=== PATIENT | female | born 1990 | race Caucasian/White ===

== ENCOUNTER 2017-06-07 21:32 | Emergency (ER) | payer BC, OTHER ==
[2017-06-07 21:54] VITALS: BP 149/101
--- NOTE | 2017-06-07 22:51 | UC ---
Upper Extremity HPI - HPI Summary HPI Summary: HAD BLOOD DRAWN RIGHT AC TODAY 11:30AM. 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 NO REDNESS, SWELLING, DRAINAGE OR INDURATION. NO FEVER. - History of Current Complaint Chief Complaint: UCUpperExtremity Stated Complaint: ARM NUMB,TINGLING, PAIN Time Seen by Provider: 06/07/17 22:07 Hx Obtained From: Patient Hx Last Menstrual Period: 05/24/17 Onset/Duration: Gradual Onset, Lasting Hours, Still Present Severity Initially: Moderate Severity Currently: Moderate Pain Intensity: 7 Pain Scale Used: 0-10 Numeric Location Of Pain: Is Discrete @ - RIGHT ARM Aggravating Factor(s): Nothing Alleviating Factor(s): Nothing Associated Signs And Symptoms: Positive: Numbness/Tingling. Negative: Swelling , Redness, Bruising, Fever, Weakness Related History: Dominant Hand Right - Allergies/Home Medications Allergies/Adverse Reactions: Allergies Allergy/AdvReac Type Severity Reaction Status Date / Time Armodafinil [From Nuvigil] Allergy Hives Verified 06/07/17 21:42 Fluoxetine [From Prozac] Allergy Rash Verified 08/09/14 11:01 Penicillins Allergy Rash Verified 08/09/14 11:01 Shrimp Flavor Allergy See Comment Verified 06/07/17 21:42 Tree Nuts Allergy Airway Verified 06/07/17 21:42 Obstruction Home Medications: Home Medications Amphetamine-Dextroamphetamine [Adderall 10 mg-] 1 tab PO DAILY 06/07/17 [ History Confirmed 06/07/17] Desvenlafaxine(NF) [Pristiq(NF)] 100 mg PO DAILY 06/07/17 [History Confirmed 06/15] Lansoprazole [Prevacid] 30 mg PO 06/07/17 [History] Norelgestromin-Ethinyl Estradi [Xulane 150-35 Mcg/24Hr] 1 dis TD 06/07/17 [ History] PMH/Surg Hx/FS Hx/Imm Hx - Additional Past Medical History Additional PMH: hiatal hernia, IBS, ADD Respiratory History: Asthma GI/ History: Gastroesophageal Reflux Psychological History: Anxiety, Depression - Surgical History Surgical History: Yes Surgery Procedure, Year, and Place: craniectomy, hemangioma removed - Family History Known Family History: Positive: Diabetes Negative: Blood Disorder - Social History Alcohol Use: Occasionally Substance Use Type: None Smoking Status (MU): Never Smoked Tobacco Review of Systems Constitutional: Negative Skin: Negative Respiratory: Negative Cardiovascular: Negative Gastrointestinal: Negative Neurological: Paresthesia All Other Systems Reviewed And Are Negative: Yes Physical Exam Triage Information Reviewed: Yes Appearance: Well-Appearing, No Pain Distress, Well-Nourished Vital Signs: Initial Vital Signs Temp 99.6 F 06/07/17 21:33 Pulse 80 06/07/17 21:33 Resp 18 06/07/17 21:33 BP 149/101 06/07/17 21:33 Pulse Ox 100 06/07/17 21:33 Vital Signs Reviewed: Yes Eyes: Positive: Conjunctiva Clear ENT: Positive: Hearing grossly normal Neck: Positive: Supple Respiratory: Positive: No respiratory distress, No accessory muscle use Cardiovascular: Positive: Pulses Normal Abdomen Description: Positive: Soft Musculoskeletal: Positive: Strength Intact, ROM Intact, No Edema, Other: - TTP AROUND PUNCTURE SITE RIGHT AC. NO SWELLING OR CORDS Neurological: Positive: Alert Psychological: Positive: Age Appropriate Behavior Skin: Positive: Other - PUNCTURE SITE RIGHT AC FOSSA. NO SURROUNDING ERYTHEMA OR BRUISING. Negative: rashes Upper Extremity Course/Dx - Differential Dx/Diagnosis Provider Diagnoses: SUPERFICIAL PHLEBITIS/PARESTHESIAS RIGHT UPPER EXTREMITY Discharge - Discharge Plan Condition: Stable Disposition: HOME Patient Education Materials: Paresthesia (ED) Referrals: Raquel Carter MD [Primary Care Provider] - If Needed Additional Instructions: YOUR SYMPTOMS SHOULD IMPROVE OVER THE NEXT FEW DAYS. YOU MAY HAVE A SUPERFICIAL PHLEBITIS (INFLAMMATION OF THE VESSEL) FROM WHERE YOU HAD YOUR BLOOD DRAWN. APPLY A HOT COMPRESS AND TAKE IBUPROFEN. DO NOT OVERLY EXERT THE ARM UNTIL SYMPTOMS ARE IMPROVED. FOLLOW-UP WITH YOUR PCP IF YOU ARE NOT IMPROVING EXPECTED OVER THE NEXT SEVERAL DAYS. GO TO THE ER WITHOUT FAIL IF YOU DEVELOP SPREADING REDNESS OF THE SKIN, PURULENT DRAINAGE, FEVER, INCREASED PAIN/SWELLING OR ANY OTHER CONCERNING SYMPTOMS.
== END 2017-06-07 23:02 | disposition home or self-care (01) ==
LOC: UCEAST 21:32
DX: I82.811 Embolism and thrombosis of superficial veins of right lower extremity (principal); R20.2 Paresthesia of skin; J45.909 Unspecified asthma, uncomplicated; K21.9 Gastro-esophageal reflux disease without esophagitis; F41.9 Anxiety disorder, unspecified; F32.9 Major depressive disorder, single episode, unspecified; F98.8 Other specified behavioral and emotional disorders with onset usually occurring in childhood and adolescence; K58.9 Irritable bowel syndrome, unspecified; K44.9 Diaphragmatic hernia without obstruction or gangrene; Z88.8 Allergy status to other drugs, medicaments and biological substances; Z88.0 Allergy status to penicillin
CPT/HCPCS: 99211; G0463

== ENCOUNTER 2017-06-22 18:11 | Emergency (ER) | payer OTHER ==
[2017-06-22 18:42] VITALS: BP 120/83
--- NOTE | 2017-06-22 19:42 | UC ---
Abdominal Pain Female HPI - HPI Summary HPI Summary: has external tissue from rectum concerned about what it is---reports ibs with constipation and occasional she has spots of blood on the toilet paper---not other morejon ill - History of Current Complaint Hx Obtained From: Patient Hx Last Menstrual Period: 06/17/17 ?: No Onset/Duration: Lasting Days - 1 Timing: Constant Severity Initially: Mild Severity Currently: Mild Pain Intensity: 0 Location: Other - rectal Radiates: No Aggravating Factor(s): Nothing Alleviating Factor(s): Nothing Associated Signs and Symptoms: Positive: Negative <Margarette Weeks - Last Filed: 06/22/17 20:05> <Faina Hayden - Last Filed: 06/22/17 20:30> - History of Current Complaint Chief Complaint: UCGI Stated Complaint: PERSONAL Time Seen by Provider: 06/22/17 19:14 Allergies/Adverse Reactions: Allergies Allergy/AdvReac Type Severity Reaction Status Date / Time Armodafinil [From Nuvigil] Allergy Hives Verified 06/22/17 18:43 Fluoxetine [From Prozac] Allergy Rash Verified 06/22/17 18:43 Penicillins Allergy Rash Verified 06/22/17 18:43 Shrimp Flavor Allergy See Comment Verified 06/22/17 18:43 Tree Nuts Allergy Airway Verified 06/22/17 18:43 Obstruction PMH/Surg Hx/FS Hx/Imm Hx Previously Healthy: No GI/ History: Gastroesophageal Reflux, Other Other GI/ History: IBS Psychological History: Other Other Psychological History: ADD - Surgical History Surgical History: Yes Surgery Procedure, Year, and Place: craniectomy, hemangiectomy - Family History Known Family History: Positive: Diabetes Negative: Blood Disorder - Social History Occupation: Employed Full-time Lives: Alone Alcohol Use: Weekly Substance Use Type: None Smoking Status (MU): Never Smoked Tobacco <Margarette Weeks - Last Filed: 06/22/17 20:05> Review of Systems Constitutional: Negative Skin: Negative Eyes: Negative ENT: Negative Respiratory: Negative Cardiovascular: Negative Gastrointestinal: Negative, Other - hemorroids? Genitourinary: Negative Motor: Negative Neurovascular: Negative Musculoskeletal: Negative Neurological: Negative Psychological: Negative Is Patient Immunocompromised?: No All Other Systems Reviewed And Are Negative: Yes <Margarette Weeks - Last Filed: 06/22/17 20:05> Physical Exam Triage Information Reviewed: Yes Appearance: Well-Appearing, No Pain Distress, Well-Nourished Vital Signs: Initial Vital Signs Temp 99.0 F 06/22/17 18:38 Pulse 97 06/22/17 18:38 Resp 18 06/22/17 18:38 BP 120/83 06/22/17 18:38 Pulse Ox 100 06/22/17 18:38 Vital Signs Reviewed: Yes Eye Exam: Normal Eyes: Positive: Conjunctiva Clear ENT Exam: Normal ENT: Positive: Normal ENT inspection, Hearing grossly normal. Negative: Nasal congestion, Nasal drainage, Trismus, Muffled/hoarse voice Dental Exam: Normal Neck exam: Normal Neck: Positive: Supple, Nontender Respiratory Exam: Normal Respiratory: Positive: Chest non-tender, No respiratory distress, No accessory muscle use Cardiovascular Exam: Normal Cardiovascular: Positive: RRR, Pulses Normal, Brisk Capillary Refill Abdominal Exam: Normal Abdomen Description: Positive: Nontender, No Organomegaly, Soft, Other: - external hemmoroid noted no bleeding Bowel Sounds: Positive: Present Musculoskeletal Exam: Normal Musculoskeletal: Positive: Strength Intact, ROM Intact, No Edema Neurological Exam: Normal Neurological: Positive: Alert, Muscle Tone Normal Psychological Exam: Normal Psychological: Positive: Normal Response To Family Skin Exam: Normal <Margarette Weeks - Last Filed: 06/22/17 20:05> Vital Signs: Initial Vital Signs Temp 99.0 F 06/22/17 18:38 Pulse 97 06/22/17 18:38 Resp 18 06/22/17 18:38 BP 120/83 06/22/17 18:38 Pulse Ox 100 06/22/17 18:38 <Faina Hayden - Last Filed: 06/22/17 20:30> Abd Pain Female Course/Dx - Course Course Of Treatment: prep H, stool softners, increase water in diet, follow with surgery if needed - Differential Dx/Diagnosis Differential Diagnosis: Constipation, Diverticulitis, Irritable Bowel Syndrome Provider Diagnoses: External Hemmoroid <Margarette Weeks - Last Filed: 06/22/17 20:05> Discharge <Margarette Weeks - Last Filed: 06/22/17 20:05> <Faina Hayden - Last Filed: 06/22/17 20:30> - Discharge Plan Condition: Stable Disposition: HOME Prescriptions: Docusate CAP* [Colace Cap*] 100 mg PO DAILY #30 cap Hemorrhoidal OINT* [Preparation H*] 1 applic MI TID PRN #1 tube PRN Reason: pain-hemorrhoids Hemorrhoidal SUPP* [Preparation H Supp*] 1 supp MI Q12H PRN #1 box PRN Reason: pain/swelling hemorrhoids Psyllium JENNIFER* [Metamucil JENNIFER*] 1 pkt PO DAILY #30 packet Patient Education Materials: Hydrocortisone (Into the rectum), Hemorrhoids (ED) Referrals: [facility] [Provider Group] - 2 Weeks Attestation Statement User Type: Provider - I was available for consult. This patient was seen by the [facility]. The patient was not presented to, seen by, or examined by me. -[place] <Faina Hayden - Last Filed: 06/22/17 20:30>
== END 2017-06-22 20:03 | disposition home or self-care (01) ==
LOC: UCEAST 18:11
DX: K64.4 Residual hemorrhoidal skin tags (principal); Z91.018 Allergy to other foods; Z88.0 Allergy status to penicillin; Z91.013 Allergy to seafood; K21.9 Gastro-esophageal reflux disease without esophagitis; K58.9 Irritable bowel syndrome, unspecified; F98.8 Other specified behavioral and emotional disorders with onset usually occurring in childhood and adolescence
CPT/HCPCS: 99211; G0463

== ENCOUNTER 2017-08-29 17:31 | Emergency (ER) | payer OTHER ==
[2017-08-29 17:39] VITALS: BP 108/68
--- NOTE | 2017-08-29 17:56 | UC ---
Respiratory Complaint HPI - HPI Summary HPI Summary: Cough sx for 1 week pink tinged sputum last nigh small amount of blood speckles this morning no fevers chills weight loss - History of Current Complaint Chief Complaint: UCGeneralIllness Stated Complaint: COUGHING BLOOD,ST Time Seen by Provider: 08/29/17 17:53 Hx Obtained From: Patient Hx Last Menstrual Period: 06/17/17 ?: No Onset/Duration: Gradual Onset, Lasting Days Timing: Constant Severity Initially: Mild Severity Currently: Mild Character: Cough: Productive Aggravating Factors: Nothing Alleviating Factors: Nothing Associated Signs And Symptoms: Positive: Hemoptysis - 'some pink speckles", URI - Allergies/Home Medications Allergies/Adverse Reactions: Allergies Allergy/AdvReac Type Severity Reaction Status Date / Time Armodafinil [From Nuvigil] Allergy Hives Verified 08/29/17 17:39 Fluoxetine [From Prozac] Allergy Rash Verified 08/29/17 17:39 Penicillins Allergy Rash Verified 08/29/17 17:39 Shrimp Flavor Allergy See Comment Verified 08/29/17 17:39 Tree Nuts Allergy Airway Verified 08/29/17 17:39 Obstruction Home Medications: Home Medications Ranitidine TAB (NF) [Zantac TAB (NF)] 150 mg PO BID 08/29/17 [History Confirmed 08/29/17] PMH/Surg Hx/FS Hx/Imm Hx Previously Healthy: No GI/ History: Gastroesophageal Reflux - Surgical History Surgical History: Yes Surgery Procedure, Year, and Place: craniectomy, hemangiectomy - Family History Known Family History: Positive: Diabetes Negative: Blood Disorder - Social History Occupation: Employed Full-time Lives: With Family Alcohol Use: Weekly Substance Use Type: None Smoking Status (MU): Never Smoked Tobacco Review of Systems Constitutional: Negative Skin: Negative Eyes: Negative ENT: Negative Respiratory: Cough Cardiovascular: Negative Gastrointestinal: Negative Genitourinary: Negative Motor: Negative Neurovascular: Negative Musculoskeletal: Negative Neurological: Negative Psychological: Negative Is Patient Immunocompromised?: No All Other Systems Reviewed And Are Negative: Yes Physical Exam Triage Information Reviewed: Yes Appearance: Well-Appearing, No Pain Distress, Well-Nourished Vital Signs: Initial Vital Signs Temp 97.2 F 08/29/17 17:35 Pulse 77 08/29/17 17:35 Resp 16 08/29/17 17:35 BP 108/68 08/29/17 17:35 Pulse Ox 100 08/29/17 17:35 Vital Signs Reviewed: Yes Eye Exam: Normal Eyes: Positive: Conjunctiva Clear ENT Exam: Normal ENT: Positive: Normal ENT inspection, Hearing grossly normal, Pharynx normal, TMs normal. Negative: Nasal congestion, Nasal drainage, Tonsillar swelling, Tonsillar exudate, Trismus, Muffled voice, Hoarse voice, Sinus tenderness Dental Exam: Normal Neck exam: Normal Neck: Positive: Supple, Nontender, No Lymphadenopathy Respiratory Exam: Normal Respiratory: Positive: Chest non-tender, Lungs clear, Normal breath sounds, No respiratory distress, No accessory muscle use Cardiovascular Exam: Normal Cardiovascular: Positive: RRR, No Murmur, Pulses Normal, Brisk Capillary Refill Musculoskeletal Exam: Normal Musculoskeletal: Positive: Strength Intact, ROM Intact, No Edema Neurological Exam: Normal Neurological: Positive: Alert, Muscle Tone Normal Psychological Exam: Normal Skin Exam: Normal UC Diagnostic Evaluation - Laboratory O2 Sat by Pulse Oximetry: 100 Respiratory Course/Dx - Course Course Of Treatment: cool mist humidifications, mucolytic, antibiodic increase fluids follow with pcp - Differential Dx/Diagnosis Provider Diagnoses: Acute Bronchitis Discharge - Discharge Plan Condition: Stable Disposition: HOME Prescriptions: Albuterol HFA INHALER* [Ventolin HFA Inhaler*] 2 puff INH Q4H PRN #1 mdi PRN Reason: cough/chest tightness Azithromycin TAB* [Zithromax TAB (Z-JENNIFER) 250 mg #6 tabs] 2 tab PO .TODAY, THEN 1 DAILY #1 jennifer predniSONE TAB* [Deltasone TAB*] 50 mg PO DAILY #4 tab Patient Education Materials: Antitussives (By mouth), Acute Bronchitis (ED), Cold Symptoms (ED) Referrals: Raquel Carter MD [Primary Care Provider] - If Needed Additional Instructions: A cool mist humidifier is very helpful in keeping airways moist-making it easier to cough up secretions
== END 2017-08-29 18:34 | disposition home or self-care (01) ==
LOC: UCEAST 17:31
DX: J20.9 Acute bronchitis, unspecified (principal); R04.2 Hemoptysis; K21.9 Gastro-esophageal reflux disease without esophagitis; Z88.0 Allergy status to penicillin; Z88.8 Allergy status to other drugs, medicaments and biological substances; Z98.890 Other specified postprocedural states
CPT/HCPCS: 87651; 99212; G0463

== ENCOUNTER 2018-10-09 20:52 | Emergency (ER) | payer OTHER ==
--- NOTE | 2018-10-09 20:59 | UC ---
Complaint Female HPI - HPI Summary HPI Summary: 28 yo female presents with concerns about possible infection. She is very anxious and has an extensive mental health history - tells me that she saw her psychiatrist about 2-3 days ago and was advised by him to get an EKG due to increased HR that he and pt have been attributing to her medications. She was seen by her PCP today and an EKG was done and revealed slightly elevated HR - per pt. She finished Bactrim yesterday for a UTI, but does not feel her urine color or smell is changed and the urine culture was negative - per pt. She is b/ l low back pain and thinks she has a fever. She is concerned about a "spreading infection" She tells me that she has had low back pain for lower abdominal pain around the time of her period for the last 3-4 months. She has been changing control methods trying to improve this discomfort. Recently she was started on the nuva- ring. Currently has mild menstrual bleeding. She has been checking her temperature multiple times today and at one point had a reading of 99.8 and 100.2F - prompting her visit to because she is concerned about a fever. She has had abdominal pain and nausea for the past few months as well and that has remained unchanged. She denies chills, sinus symptoms, sore throat, cough, SOB, chest pain, dysuria, or hematuria. Denies SI/HI. - History Of Current Complaint Stated Complaint: FEVER, AND BACK PAIN Hx Obtained From: Patient Hx Last Menstrual Period: 10/09/18 Onset/Duration: Gradual Onset Timing: Constant Severity Initially: Moderate Severity Currently: Moderate Pain Intensity: 6 Pain Scale Used: 0-10 Numeric - Allergies/Home Medications Allergies/Adverse Reactions: Allergies Allergy/AdvReac Type Severity Reaction Status Date / Time armodafinil [From Nuvigil] Allergy Intermediate Rash Verified 10/09/18 21:16 Penicillins Allergy Intermediate Rash Verified 10/09/18 21:16 fluoxetine [From Prozac] Allergy Rash Verified 10/09/18 21:16 shrimp Allergy by skin Verified 10/09/18 21:16 testing Tree Nuts Allergy Airway Verified 10/09/18 21:16 Obstruction Home Medications: Home Medications Methylphenidate HCl [Concerta] 36 mg PO DAILY 10/09/18 [History Confirmed ] PMH/Surg Hx/FS Hx/Imm Hx - Additional Past Medical History Additional PMH: ADHD GI/ History: Gastroesophageal Reflux Psychological History: Anxiety, Depression - Surgical History Surgical History: Yes Surgery Procedure, Year, and Place: craniectomy, hemangiectomy - Family History Known Family History: Positive: Diabetes Negative: Blood Disorder - Social History Occupation: Employed Full-time Lives: With Family Alcohol Use: Weekly Substance Use Type: None Smoking Status (MU): Never Smoked Tobacco Review of Systems All Other Systems Reviewed And Are Negative: Yes Constitutional: Positive: Fever Skin: Positive: Negative Eyes: Positive: Negative ENT: Positive: Negative Respiratory: Positive: Negative Cardiovascular: Positive: Negative Gastrointestinal: Positive: Negative Genitourinary: Positive: Dysuria Neurovascular: Positive: Negative Neurological: Positive: Negative Psychological: Positive: Negative Physical Exam - Summary Physical Exam Summary: GENERAL: NAD. WDWN. No pain distress. SKIN: No rashes, sores, lesions, or open wounds. NECK: Supple. Nontender. No lymphadenopathy. CHEST: CTAB. No r/r/w. No accessory muscle use. Breathing comfortably and in no distress. CV: Tachycardia. Without m/r/g. Pulses intact. Cap refill <2seconds ABDOMEN: TTP about entire abdomen - worse in lower abdomen. No distention or guarding. Mild b/l CVA tenderness. Bowel sounds present MSK: TTP about lumbar paraspinal muscles. Pain worse with bending and stretching. Negative SLR. FROM b/l LEs. NEURO: AAOx3. Sensations intact L3-S1. PSYCH: Age appropriate behavior. Triage Information Reviewed: Yes Vital Signs: Vital Signs: Temp Pulse Resp BP Pulse Ox 98 F 103 17 144/94 98 10/09/18 20:58 10/09/18 20:58 10/09/18 20:58 10/09/18 20:58 10/09/18 20:58 Laboratory Tests 10/09/18 21:20 POC Urine Color Yessenia POC Urine Clarity Clear POC Urine pH 7.0 POC Ur Specif [place] 1.025 POC Urine Protein Trace A POC Ur Glucose (UA) Negative POC Urine Ketones 3+ A POC Urine Blood Negative POC Urine Nitrite Negative POC Urine Bilirubin 1+ A POC Urine Urobilinogen 1.0 POC U Leukocyte Esteras Negative Vital Signs Reviewed: Yes Complaint Female Dx - Course Course Of Treatment: I had a long discussion with the pt that her vitals are WNL , her urine does not show any infection, and her exam shows no evidence of infection. She does have some TTP in her back and lower abdomen - but this has been ongoing for months. I reassured her that I do not see any signs of an acute disease process today, but will draw for CBC, CMP, and TSH to further evaluate a potential underlying process. I suspect most of her symptoms are related to her menstrual cycle and/or anxiety. She has a f/u with her psychiatrist scheduled and an appt to f/u with her PCP in about 1 month - will forward results to her PCP from labwork today. Pt voiced understanding and is agreeable to the plan. - Differential Dx/Diagnosis Provider Diagnosis: Lower abdominal pain, Low back pain, Anxiety Discharge - Sign-Out/Discharge Documenting (check all that apply): Patient Departure All imaging exams completed and their final reports reviewed: No Studies - Discharge Plan Condition: Stable Disposition: HOME Referrals: Anna Jaffe MD [Primary Care Provider] - Additional Instructions: If you develop a fever, shortness of breath, chest pain, new or worsening symptoms - please call your PCP or go to the ED. I believe the cause of your pain is related to your menstrual cycle. You had no sign of infection on your exam today. We have drawn for labwork and will call you with results. Please keep your appointment with your primary doctor for further evaluation. - Billing Disposition and Condition Condition: STABLE Disposition: Home - Attestation Statements Provider Attestation: I was available for consult. This patient was seen by the [facility]. The patient was not presented to, seen by, or examined by me. -[place]
[2018-10-09 21:08] VITALS: BP 144/94
[2018-10-10 14:20] LABS: ABS Basophils 0 10^3/ul (0-0.2); ABS Eosinophils 0 10^3/ul (0-0.6); ABS Monocytes 0.5 10^3/ul (0-0.8); ABS Neutrophils 4.3 10^3/ul (1.5-7.7); ABS Nucleated RBC 0 10^3/ul; Eosinophil % 0.2 %; Hematocrit 41 % (35-47); Hemoglobin 13.6 g/dl (12.0-16.0); Lymphocyte % 17.6 %; Mean Corpuscular HGB Conc 34 g/dl (31-36); Mean Corpuscular Hemoglobin 29 pg (27-31); Mean Corpuscular Volume 86 fL (80-97); Mean Platelet Volume 7.3 fL (7.4-10.4); Nucleated Red Blood Cells % 0.1; Platelet Count 324 10^3/ul (150-450); Red Cell Distribution Width 13 % (10.5-15); White Blood Count 5.9 10^3/ul (3.5-10.8)
[2018-10-10 14:25] LABS: Albumin 4.2 g/dL (3.2-5.2); Calcium 9.6 mg/dL (8.6-10.3); Potassium 3.7 mmol/L (3.5-5.0); Total Bilirubin 0.3 mg/dL (0.2-1.0)
[2018-10-10 14:31] LABS: Albumin/Globulin Ratio 1.2 (1-3); BUN/Creatinine Ratio 11.5 (8-20); EGFR Non-African American 63.1 (>60); Globulin 3.5 g/dL (2-4); Total Protein 7.7 g/dL (6.4-8.9)
[2018-10-10 14:48] LABS: TSH (Thyroid Stimulating Horm) 2.27 mcIU/mL (0.34-5.60)
== END 2018-10-09 21:46 | disposition home or self-care (01) ==
LOC: UCEAST 20:52
DX: R10.30 Lower abdominal pain, unspecified (principal); M54.5 Low back pain; F41.9 Anxiety disorder, unspecified; Z88.8 Allergy status to other drugs, medicaments and biological substances; Z91.018 Allergy to other foods; Z88.0 Allergy status to penicillin; Z91.013 Allergy to seafood
CPT/HCPCS: 36415; 80053; 81003; 84443; 85025; 99211; G0463

== ENCOUNTER 2018-12-17 09:14 | Emergency (ER) | payer OTHER ==
[2018-12-17] MEDS ORDERED: Ondansetron INJ* 2 MG/ML VIAL IV ONE (09:59)
[2018-12-17] MEDS ORDERED: NS 0.9% 1000 ML** 1,000 ML IV ONE (09:59)
[2018-12-17 10:46] LABS: ABS Basophils 0 10^3/ul (0-0.2); ABS Eosinophils 0 10^3/ul (0-0.6); ABS Lymphocytes 0.3 10^3/ul (1.0-4.8); ABS Monocytes 0.6 10^3/ul (0-0.8); ABS Neutrophils 9.6 10^3/ul (1.5-7.7); ABS Nucleated RBC 0 10^3/ul; Eosinophil % 0.3 %; Hematocrit 40 % (33-41); Hemoglobin 13.4 g/dL (12.0-16.0); Lymphocyte % 2.4 %; Mean Corpuscular HGB Conc 34 g/dL (31-36); Mean Corpuscular Hemoglobin 29 pg (27-31); Mean Corpuscular Volume 85 fL (80-97); Mean Platelet Volume 6.9 fL (7.4-10.4); Nucleated Red Blood Cells % 0; Platelet Count 312 10^3/uL (150-450); Red Blood Count 4.62 10^6 /uL (3.70-4.87); Red Cell Distribution Width 14 % (10.5-15); White Blood Count 10.5 10^3/uL (3.5-10.8)
[2018-12-17 11:09] LABS: HCG Pregnancy < 0.60 mIU/mL
[2018-12-17 11:23] LABS: ALT 16 U/L (7-52); AST 18 U/L (13-39); Albumin 4.1 g/dL (3.2-5.2); Albumin/Globulin Ratio 1.3 (1-3); Alkaline Phosphatase 48 U/L (34-104); Anion Gap 9 mmol/L (2-11); BUN/Creatinine Ratio 21.5 (8-20); Blood Urea Nitrogen 20 mg/dL (6-24); CO2 Carbon Dioxide 23 mmol/L (22-32); Calcium 9.2 mg/dL (8.6-10.3); Chloride 107 mmol/L (101-111); EGFR African American 86.9 (>60); EGFR Non-African American 71.8 (>60); Globulin 3.1 g/dL (2-4); Glucose 131 mg/dL (70-100); Potassium 3.8 mmol/L (3.5-5.0); Sodium 139 mmol/L (135-145); Total Protein 7.2 g/dL (6.4-8.9)
[2018-12-17 12:38] VITALS: BP 119/79
--- NOTE | 2018-12-21 15:30 | ED ---
Abdominal Pain/Female - HPI Summary HPI Summary: Pt. is a 28 y.o female who presents to the ER for vomiting, diarrhea and abd. pain that started last night. Pt. denies recent travel, sick contacts, antibx use. Pt. denies fever, chills, or urinary sxs. Sxs are moderate in severity. Pt. described abd. pain as diffuse and cramping. She also notes today she noticed a small about of "pink blood" on toilet tissue after BM. Hx of GERD, depression,ADHD. NO current modifying factors. - History of Current Complaint Chief Complaint: EDNauseaVomitDiarrh Stated Complaint: VOMITING PER PT Time Seen by Provider: 12/17/18 09:34 Hx Obtained From: Patient Hx Last Menstrual Period: 10/09/18 Pain Intensity: 3 Pain Scale Used: 0-10 Numeric Allergies/Adverse Reactions: Allergies Allergy/AdvReac Type Severity Reaction Status Date / Time armodafinil [From Nuvigil] Allergy Intermediate Rash Verified 12/17/18 09:20 Penicillins Allergy Intermediate Rash Verified 12/17/18 09:20 fluoxetine [From Prozac] Allergy Rash Verified 12/17/18 09:20 shrimp Allergy by skin Verified 12/17/18 09:20 testing Tree Nuts Allergy Airway Verified 12/17/18 09:20 Obstruction Home Medications: Home Medications Lisdexamfetamine Dimesylate [Vyvanse] 50 mg PO DAILY 12/17/18 [History Confirmed 12/17/18] Sertraline* [Zoloft*] 150 mg PO DAILY 12/17/18 [History Confirmed 12/17/18] PMH/Surg Hx/FS Hx/Imm Hx Previously Healthy: Yes Endocrine/Hematology History: Denies: Hx Diabetes, Hx Thyroid Disease Respiratory History: Reports: Hx Asthma Denies: Hx Chronic Obstructive Pulmonary Disease (COPD) GI History: Denies: Hx Ulcer - Surgical History Surgery Procedure, Year, and Place: craniectomy, hemangiectomy Infectious Disease History: No Infectious Disease History: Denies: Hx Clostridium Difficile, Hx Hepatitis, Hx Human Immunodeficiency Virus (HIV), Hx of Known/Suspected MRSA, Hx Shingles, Hx Tuberculosis, Hx Known/ Suspected VRE, Hx Known/Suspected VRSA, History Other Infectious Disease, Traveled Outside the [place] in Last 30 Days - Family History Known Family History: Positive: Diabetes, Non-Contributory Negative: Blood Disorder - Social History Occupation: Employed Full-time Lives: With Family Alcohol Use: Weekly Substance Use Type: Reports: None Smoking Status (MU): Never Smoked Tobacco Review of Systems Constitutional: Negative Negative: Fever Eyes: Negative ENT: Negative Cardiovascular: Negative Respiratory: Negative Positive: Abdominal Pain, Vomiting, Diarrhea Genitourinary: Negative Negative: dysuria All Other Systems Reviewed And Are Negative: Yes Physical Exam Triage Information Reviewed: Yes Vital Signs On Initial Exam: Initial Vitals Temp Pulse Resp BP Pulse Ox 97 F 84 20 124/74 100 12/17/18 09:20 12/17/18 09:20 12/17/18 09:20 12/17/18 09:20 12/17/18 09:20 Vital Signs Reviewed: Yes Appearance: Positive: Well-Appearing - Pt. lying in bed, appears uncomfortable but nontoxic. Friend present. Skin: Positive: Warm, Dry Head/Face: Positive: Normal Head/Face Inspection Eyes: Positive: Normal, EOMI Neck: Positive: Supple Respiratory/Lung Sounds: Positive: Clear to Auscultation, Breath Sounds Present Cardiovascular: Positive: Normal, RRR Abdomen Description: Positive: Other: - Abd. is soft with mild diffuse tenderness without guarding or rebound tenderness. Pt. declined rectal exam. Neurological: Positive: Normal, CN Intact II-III Psychiatric: Positive: Affect/Mood Appropriate Diagnostics - Vital Signs Vital Signs Temp Pulse Resp BP Pulse Ox 12/17/18 12:43 99 F 79 16 119/79 100 12/17/18 12:35 119/79 12/17/18 12:05 111/72 12/17/18 11:35 101/59 12/17/18 11:13 59 82 12/17/18 11:05 95/78 12/17/18 10:35 104/79 12/17/18 10:00 79 99 12/17/18 09:58 97/78 12/17/18 09:36 74 95 12/17/18 09:28 124/74 12/17/18 09:20 97 F 84 20 124/74 100 - Laboratory Lab Results: Lab Results 12/17/18 12/17/18 Range/Units 10:39 10:39 WBC 10.5 (3.5-10.8) 10^3/uL RBC 4.62 (3.70-4.87) 10^6 /uL Hgb 13.4 (12.0-16.0) g/dL Hct 40 (33-41) % MCV 85 (80-97) fL MCH 29 (27-31) pg MCHC 34 (31-36) g/dL RDW 14 (10.5-15) % Plt Count 312 (150-450) 10^3/uL MPV 6.9 L (7.4-10.4) fL Neut % (Auto) 91.1 % Lymph % (Auto) 2.4 % [place] % (Auto) 5.8 % Eos % (Auto) 0.3 % Baso % (Auto) 0.4 % Absolute Neuts (auto) 9.6 H (1.5-7.7) 10^3/ul Absolute Lymphs (auto) 0.3 L (1.0-4.8) 10^3/ul Absolute Monos (auto) 0.6 (0-0.8) 10^3/ul Absolute Eos (auto) 0 (0-0.6) 10^3/ul Absolute Basos (auto) 0 (0-0.2) 10^3/ul Absolute Nucleated RBC 0 10^3/ul Nucleated RBC % 0 Sodium 139 (135-145) mmol/L Potassium 3.8 (3.5-5.0) mmol/L Chloride 107 (101-111) mmol/L Carbon Dioxide 23 (22-32) mmol/L Anion Gap 9 (2-11) mmol/L BUN 20 (6-24) mg/dL Creatinine 0.93 (0.51-0.95) mg/dL Est GFR ( Amer) 86.9 (>60) Est GFR (Non-Af Amer) 71.8 (>60) BUN/Creatinine Ratio 21.5 H (8-20) Glucose 131 H (70-100) mg/dL Calcium 9.2 (8.6-10.3) mg/dL Total Bilirubin 0.40 (0.2-1.0) mg/dL AST 18 (13-39) U/L ALT 16 (7-52) U/L Alkaline Phosphatase 48 (34-104) U/L Total Protein 7.2 (6.4-8.9) g/dL Albumin 4.1 (3.2-5.2) g/dL Globulin 3.1 (2-4) g/dL Albumin/Globulin Ratio 1.3 (1-3) Lipase < 10 L (11.0-82.0) U/L Beta HCG, Quant < 0.60 mIU/mL Result Diagrams: 12/17/18 10:39 12/17/18 10:39 Lab Statement: Any lab studies that have been ordered have been reviewed, and results considered in the medical decision making process. Abdominal Pain Fem Course/Dx - Course Course Of Treatment: Pt. presenting with V/D and diffuse abd. cramping. She is afebrile with stable VS. Pt. was given IV fliuds and zofran. Labs are unremarkable. On re-exam pt. is tolerating PO fluids and feeling a bit better. Suspect viral gastroenteritis. Pt. .did note a little bit of blood with wiping after a BM, pt. declines rectal exam. No imaging ordered today. Advised clear liquid diet x 24 hours. To increase fluids. Zofran rx. Advised to return to ER for increased pain, uncontrollable vomiting, fever, or if concerned. Pt. understands and agrees with plan. - Diagnoses Differential Diagnosis: Positive: Appendicitis, Gall Bladder Disease, Pancreatitis, , Renal Colic Provider Diagnoses: Gastroenteritis Discharge - Sign-Out/Discharge Documenting (check all that apply): Patient Departure Patient Received Moderate/Deep Sedation with Procedure: No - Discharge Plan Condition: Improved Disposition: HOME Prescriptions: Ondansetron TAB* [Zofran 4 MG Tab*] 4 mg PO Q6H PRN #12 tab PRN Reason: Nausea Patient Education Materials: Gastroenteritis (ED) Referrals: Anna Jaffe MD [Primary Care Provider] - Additional Instructions: Follow up with PCP Zofran as directed for nausea/vomiting Increase fluids and rest Clear liquid diet x 24 hours Return to ER for increased pain, fever, uncontrollable vomiting or if concerned - Billing Disposition and Condition Condition: IMPROVED Disposition: Home
== END 2018-12-17 12:43 | disposition home or self-care (01) ==
LOC: ED 09:14
DX: K52.9 Noninfective gastroenteritis and colitis, unspecified (principal); K21.9 Gastro-esophageal reflux disease without esophagitis; F32.9 Major depressive disorder, single episode, unspecified; F90.9 Attention-deficit hyperactivity disorder, unspecified type; Z88.8 Allergy status to other drugs, medicaments and biological substances; Z91.018 Allergy to other foods; Z88.0 Allergy status to penicillin; Z91.013 Allergy to seafood
CPT/HCPCS: 36415; 80053; 83690; 84702; 85025; 96361; 96374; 99283; J2405